=== PATIENT | male | born 1945 | race Caucasian/White ===

== ENCOUNTER → 2017-04-07 | Outpatient (CLI) | payer MEDICARE ==
[~2017-04-07] MED LIST: ASPIRIN EC81 MG PO; ATENOLOL-CHLOR1 EAC1 PO; CARTIA XT120 MG PO; DIOVAN80 MG PO; EYE DROPS15 M1; IBUPROFEN400 MG PO; IOPAMIDOL 370 MG/ML 200 ML INFUS..BTL INJ ONE; MULTAQ 400MG T400 MG PO; MULTIVITAMIN PO; NEOMYC-POLYM-DEX5 ML OU; PREDNISOLONE ACE5 ML OU; SODIUM CHLORIDE 0.9% 50ML 50 ML ONE; TOPROL XL25 MG PO; XARELTO10 MG PO; XARELTO20 MG; XARELTO20 MG PO
--- NOTE | 2017-04-07 17:48 | Diagnostic Imaging Report ---
PROCEDURE:CT CHEST WITH CONTRAST COMPARISON:CT chest 01/12/13 INDICATIONS:CHRONIC OBSTRUCTIVE PULMONARY DISEASE TECHNIQUE: Axial CT images of the chest were obtained after the intravenous administration of 100 cc of nonionic contrast. Coronal and sagittal reformations were made available for review. RADIATION DOSE: Total DLP: 568.2 mGy*cm Estimated effective dose: (DLP x 0.014 x size factor) mSv FINDINGS: Lungs: Right lung: Diffusely hyperinflated with mild bronchial wall thickening and cylindrical bronchiectasis. Calcified granulomata in the upper lobe measure up to 3 mm. Calcified granuloma along the minor fissure (coronal image 51) measures 4 mm and is stable. No infiltrate or soft tissue mass. Left lung: Diffusely hyperinflated with mild bronchial wall thickening and cylindrical bronchiectasis. No soft tissue mass or infiltrate. Discoid atelectasis or scar at the base is stable. Pleura:No pleural effusion or pneumothorax. Lymph nodes: No enlarged axillary, subclavicular, mediastinal, or hilar lymph nodes. Thyroid/base of neck: Unremarkable. Heart \T\ Mediastinum:The heart is normal in size with prominent pericardial fat pads. No filling defects in the great vessels. No aneurysmal dilatation of the aorta. No pericardial effusion. The esophagus is normal. Upper abdomen:Visualized portions of the upper abdomen demonstrate mild fatty atrophy of the pancreas. There is a cyst in the upper pole of the right kidney measuring 18 mm (previously, 12 mm). This is stable. Masses in the upper pole of the left kidney are no longer visualized. The spleen has rounded contours suggestive of splenomegaly. Maximal length is 11 cm. The morphology has changed in the interim. Musculoskeletal:There are degenerative changes of the midthoracic spine. No compression deformities. No lytic or blastic lesions. CONCLUSION: 1. Pulmonary hyperinflation consistent with COPD. Chronic bronchitis. No CT evidence of emphysema. 2. Healed granulomatous inflammation. 3. Rounded contours of the spleen suggestive of splenomegaly. Further evaluation can be made with ultrasound. 4. Upper pole lesions in the left kidney are no longer visualized. Please correlate with surgical history. Cyst in the upper pole of the right kidney is slightly larger. Dictated by: Brown Pack M.D. on 04/07/2017 at 17:56 Electronically approved by: Brown Pack M.D. on 04/07/2017 at 17:56
== END ==
LOC: CT 15:21
PROVIDERS: ATTEND Family Medicine
DX: J44.9 Chronic obstructive pulmonary disease, unspecified (principal)
CPT/HCPCS: 71260; Q9967

== ENCOUNTER → 2020-02-21 | Outpatient (CLI) | payer MEDICARE ==
[~2020-02-21] MED LIST changes: -IOPAMIDOL 370 MG/ML 200 ML INFUS..BTL INJ ONE; -SODIUM CHLORIDE 0.9% 50ML 50 ML ONE
== END ==
LOC: MRI 11:32
PROVIDERS: ATTEND Radiology Neuroradiology
DX: G20 Parkinson's disease (principal); M48.02 Spinal stenosis, cervical region
CPT/HCPCS: 70551; 72141

== ENCOUNTER → 2020-03-31 | Outpatient (CLI) | payer OTHER ==
[~2020-03-31] MED LIST changes: +COVID-19 VACC, MRNA(MODERNA)/PF 100 MCG/0.5 ML VIAL IM ONE
== END ==
LOC: VACCPMC 18:00
DX: Z23 Encounter for immunization (principal); Z20.828 Contact with and (suspected) exposure to other viral communicable diseases

== ENCOUNTER → 2020-05-06 | Outpatient (CLI) | payer OTHER | END | DRG 951 | LOC: VACCPMC 07:12 | DX: Z23 Encounter for immunization (principal); Z20.822 Contact with and (suspected) exposure to COVID-19 | CPT/HCPCS: 0012A; 91301 ==

== ENCOUNTER 2021-03-22 10:15 | Emergency (ER) | payer MEDICARE ==
[~2021-03-22] VITALS: Ht 188 cm; Wt 104.3 kg
[~2021-03-22 10:15] MED LIST changes: -COVID-19 VACC, MRNA(MODERNA)/PF 100 MCG/0.5 ML VIAL IM ONE
[2021-03-22] MEDS ORDERED: SOTROVIMAB 500 MG in SODIUM CHLORIDE 0.9% 100 ML IV ONE (15:00)
[2021-03-22] MEDS ORDERED: SODIUM CHLORIDE 0.9% 100 ML ONE (15:13)
[2021-03-22 16:11] VITALS: BP 137/70
== END 2021-03-22 16:12 | disposition home or self-care (01) ==
LOC: FSED 10:21
DX: U07.1 COVID-19 (principal)
CPT/HCPCS: 71045; 83518; 87400; 99284; J7050; U0002

== ENCOUNTER → 2021-09-03 | Outpatient (CLI) | payer MEDICARE | LOC: MRI 14:41 | PROVIDERS: ATTEND Family Medicine | DX: S43.002A Unspecified subluxation of left shoulder joint, initial encounter (principal) ==

== ENCOUNTER 2023-08-15 12:48 | Inpatient (IN) | payer MEDICARE ==
[~2023-08-15] VITALS: Ht 188 cm; Wt 99.8 kg
[2023-08-15] MEDS ORDERED: SODIUM CHLORIDE FLUSH 10 ML SYR INJ PRN (14:15)
[2023-08-15] MEDS: ASPIRIN 81 MG CHEW TAB PO ONE (14:29)
[2023-08-15] MEDS ORDERED: ASPIRIN 81 MG CHEW TAB ONE (14:30)
[2023-08-15 16:11] VITALS: BP 170/77; PULSE 45; RESP 18; TEMP 97.7; O2SAT 100
[2023-08-15 16:30] VITALS: BP 134/77; PULSE 49; RESP 18; TEMP 97.5; TEMP 97.7; O2SAT 100
[2023-08-15 17:12] LABS: TROPONIN I 0.001 ng/mL (0-0.300)
[2023-08-15] MEDS ORDERED: VALSARTAN-HCTZ1 EAC2 PO (18:46)
[2023-08-15 20:00] VITALS: BP 156/76; PULSE 50; RESP 18; TEMP 97.7; O2SAT 100
[2023-08-15 21:00] VITALS: BP 156/76; PULSE 50; RESP 18; TEMP 97.7; O2SAT 100
[2023-08-15] MEDS: SODIUM CHLORIDE 0.9% 1000ML 250 ML IV ONE (21:56)
[2023-08-15] MEDS ORDERED: SIMETHICONE 80 MG CHEW PO PRN (22:15)
[2023-08-15] MEDS ORDERED: ALBUTEROL/IPRATROPIUM 3 ML NEB NEB PRN (22:15)
[2023-08-15] MEDS ORDERED: ONDANSETRON HCL INJ 2MG/ML 2ML 2 MG/ML VIAL IV PRN (22:15)
[2023-08-15] MEDS ORDERED: MELATONIN 3 MG TAB PO PRN (22:15)
[2023-08-15] MEDS ORDERED: ACETAMINOPHEN 325 MG TAB PO PRN (22:15)
[2023-08-15] MEDS ORDERED: DOCUSATE SODIUM 100 MG CAP PO PRN (22:15)
[2023-08-15] MEDS: SODIUM CHLORIDE 0.9% 1000ML 1,000 ML IV SCH (22:31)
[2023-08-15] MEDS: IBUPROFEN 600 MG TAB PO PRN (22:32)
[2023-08-15] MEDS: HYDRALAZINE HCL 25 MG TAB PO SCH (22:32)
[2023-08-16] VITALS (10 sets, daily range): BP systolic 119–171; BP diastolic 61–83; PULSE 48–66; RESP 18–20; TEMP 97.9–98.2; O2SAT 97–100
[2023-08-16 05:12] LABS: BASOPHILS % 0.5 % (0.0-1.0); EOSINOPHILS # (AUTO) 0.2 (0.0-0.4); HEMATOCRIT 37.9 % (38.2-49.6); HEMOGLOBIN 12.5 g/dL (14.0-18.0); LYMPHOCYTES # (AUTO) 1.4 (1.0-3.2); LYMPHOCYTES % 24.4 % (18.0-39.1); MEAN CORPUSCULAR HEMOGLOBIN 30.6 pg (28-32); MEAN CORPUSCULAR VOLUME 92.7 fL (81-99); MONOCYTES # (AUTO) 0.4 (0.2-0.8); MONOCYTES % 7.6 % (4.4-11.3); NEUTROPHILS # (AUTO) 3.5 (2.1-6.9); NEUTROPHILS % 62.3 % (38.7-80.0); PLATELET COUNT 165 x10e3/uL (140-360); RED BLOOD COUNT 4.09 x10e6/uL (4.3-5.7); RED CELL DISTRIBUTION WIDTH 12.9 % (11.7-14.4); WHITE BLOOD COUNT 5.69 x10e3/uL (4.8-10.8)
[2023-08-16 05:57] LABS: ALBUMIN 3.1 g/dL (3.5-5.0); ALBUMIN/GLOBULIN RATIO 1.2 (0.8-2.0); BILIRUBIN,TOTAL 0.3 mg/dL (0.2-1.2); CALCIUM 8.4 mg/dL (8.4-10.2); CHOL/HDL RATIO 4.7 (3.9-4.7); CREATININE, SERUM 1.36 mg/dL (0.72-1.25); MAGNESIUM 1.8 MG/DL (1.3-2.1); PHOSPHORUS 3.3 MG/DL (2.3-4.7); TOTAL PROTEIN 5.7 g/dL (6.5-8.1)
[2023-08-16 06:38] LABS: TROPONIN I 0.002 ng/mL (0-0.300)
[2023-08-16] MEDS: ASPIRIN 81 MG ENTERIC COATED PO SCH (09:03)
[2023-08-16] MEDS: FAMOTIDINE 20 MG TAB PO SCH (09:03)
[2023-08-16 14:06] LABS: TROPONIN I 0.012 ng/mL (0-0.300)
[2023-08-16 14:49] LABS: CLARITY,URINE CLEAR (CLEAR); COLOR,URINE YELLOW (YELLOW)
[2023-08-16 14:50] LABS: BILIRUBIN,URINE NEGATIVE (NEGATIVE); GLUCOSE, URINE NEGATIVE (NEGATIVE); KETONES,URINE NEGATIVE (NEGATIVE); LEUKOCYTE ESTERASE ,URINE NEGATIVE (NEGATIVE); NITRITE,URINE NEGATIVE (NEGATIVE); PH,URINE 6.5 (5 - 7); PROTEIN,URINE DIPSTICK NEGATIVE (NEGATIVE); URINE UROBILINOGEN 0.2 mg/dL (0.2 - 1)
[2023-08-16 15:03] LABS: BACTERIA,URINE MODERATE /HPF; EPITHELIAL CELLS,URINE MODERATE /LPF; TRANSITIONAL EPI CELLS,URINE FEW
[2023-08-16] MEDS ORDERED: HYDRALAZINE HCL50 MG PO (15:39)
[2023-08-16] MEDS ORDERED: LOSARTAN POTASS25 MG PO (15:40)
[2023-08-16] MEDS: HYDRALAZINE HCL 25 MG TAB PO ONE (15:54)
[2023-08-16] MEDS: VALSARTAN 160 MG TAB PO ONE (17:36)
[2023-08-16] MEDS ORDERED: DIOVAN160 MG PO ×2 (18:54→19:46)
[2023-08-16] MEDS ORDERED: ASPIRIN81 MG PO ×2 (19:40→19:46)
[2023-08-16] MEDS ORDERED: CEPHALEXIN500 MG PO (21:01)
== END 2023-08-16 20:13 | disposition home or self-care (01) | DRG 309 ==
LOC: FSED 12:53 → ERHOLD 14:18 → MED/SURG3 15:53
PROVIDERS: ADMIT Internal Medicine; ATTEND Internal Medicine
DX: R00.1 Bradycardia, unspecified (principal); I16.1 Hypertensive emergency; N17.9 Acute kidney failure, unspecified; N39.0 Urinary tract infection, site not specified; I48.0 Paroxysmal atrial fibrillation; I44.0 Atrioventricular block, first degree; I12.9 Hypertensive chronic kidney disease with stage 1 through stage 4 chronic kidney disease, or unspecified chronic kidney disease; N18.30 Chronic kidney disease, stage 3 unspecified; I49.1 Atrial premature depolarization; S09.90XA Unspecified injury of head, initial encounter; R20.0 Anesthesia of skin; I65.22 Occlusion and stenosis of left carotid artery; E66.9 Obesity, unspecified; Z68.28 Body mass index [BMI] 28.0-28.9, adult; Z11.52 Encounter for screening for COVID-19; Z90.5 Acquired absence of kidney; W01.198A Fall on same level from slipping, tripping and stumbling with subsequent striking against other object, initial encounter; Y92.002 Bathroom of unspecified non-institutional (private) residence as the place of occurrence of the external cause; Z79.899 Other long term (current) drug therapy; Z79.82 Long term (current) use of aspirin
CPT/HCPCS: 0223U; 36415; 70450; 70486; 70544; 70551; 72125; 80053; 80061; 81001; 81003; 82550; 82553; 83735; 84100; 84484; 85025; 93005; 93306; 93880; 99284; J7030